=== PATIENT | female | born 1935 | race Caucasian/White ===

== ENCOUNTER 2017-11-27 09:35 | Outpatient (CLI) | payer MEDICARE, BC ==
--- NOTE | 2017-11-27 11:24 | ULT ---
ABDOMINAL ULTRASOUND: Date: 11/27/17 COMPARISON: None. HISTORY: Generalized intra-abdominal and pelvic swelling mass and lump. TECHNIQUE: Multiplanar Vargas scale sonographic imaging of the abdomen provided. FINDINGS: Imaged pancreas is unremarkable. The body and tail are partially obscured by bowel gas. The inferior vena cava and intrahepatic veins are dilated, which may be on the basis of passive conge stion. The imaged abdominal aorta appears grossly unremarkable. No gallbladder wall thickening or per icholecystic fluid. No gallstones are noted. Car Whacker reports a negative Brown's sign. The common bile duct measures 6.0 mm, within normal limits. The right kidney measures 9.3 cm in craniocaudal dimension and demonstrates no stone, hydronephrosis, or mass. The left kidney measures 9.9 cm in craniocaudal dimension and contains a 1.8 x 1.5 x 1.5 cm cyst. Spleen measures 7.6 cm and contains echogenic foci suggesting numerous granulomata. IMPRESSION: 1. Dilated IVC and hepatic veins may signify venous congestion, possibly cardiogenic in nature. 2. No evidence for cholelithiasis, cholecystitis, or biliary dilatation. POS: [facility]
== END 2017-11-27 09:36 | disposition home or self-care (01) ==
LOC: ULT 09:35
PROVIDERS: ATTEND Internal Medicine
DX: R19.07 Generalized intra-abdominal and pelvic swelling, mass and lump (principal); I86.8 Varicose veins of other specified sites
CPT/HCPCS: 76700

== ENCOUNTER 2018-04-11 07:52 | Outpatient (CLI) | payer MEDICARE, BC ==
--- NOTE | 2018-04-11 11:09 | CT ---
ABDOMEN CT WITH CONTRAST PELVIC CT WITH CONTRAST: HISTORY: Evaluate for abdominal mass. COMPARISON: None. FINDINGS: ABDOMEN CT: Enlarged cardiac silhouette. Lung bases are clear. The descending thoracic aorta and abdominal aort a have a normal caliber. No periaortic fat stranding. Symmetric attenuation of the psoas muscles. Portal vein is patent. Gallbladder is unremarkable. There is nodularity of the liver with a heterogeneous appearance. There is a questionable area of no dularity in the right hepatic lobe (Image 28, Series 2). Given this patient's history of cancer, thre e-phase liver MRI is recommended. The hepatic vein and IVC are markedly enlarged suggesting venous co ngestion. There are calcified granulomas in the spleen. The pancreas and adrenal glands are unremar kable. No gastrohepatic, retrocrural, or periportal lymphadenopathy. There are calcifications in the peripancreatic region which are nonspecific. Symmetric enhancement of the kidneys. Bilaterally, no obstructive uropathy. A 1.5 cm exophytic lesi on emanating from the left kidney likely representing a slightly complex cyst. Gastric mucosa, duodenum, and multiple normal-caliber small bowel loops. Ileocecal junction is jon l. Appendix is not appreciated. There are diverticula in the left hemicolon. No diverticulitis. The visualized inferior vena cava and common iliac arteries are markedly distended. There are asymme trically prominent left internal iliac/left pelvic veins. PELVIC CT: Surgical absence of the uterus. No pelvic mass, lymphadenopathy, or free air. Unremarkable urinary bladder. IMPRESSION: 1. Marked dilatation of the inferior vena cava, hepatic vein, and the overall venous system suggestin g venous congestion likely from right heart failure. 2. Diverticulosis, without evidence of diverticulitis. 3. Indeterminate, likely complex left renal cyst. 4. Three-phase liver MRI is recommended. POS: [facility]
[2018-04-11] MEDS ORDERED: Iopamidol 370 76% 50 ML VIAL FS ONE (12:27)
[2018-04-11] MEDS ORDERED: Iopamidol 370 76% 100 ML VIAL ONE (12:27)
== END 2018-04-11 07:53 | disposition home or self-care (01) ==
LOC: CT 07:52
PROVIDERS: ATTEND Internal Medicine
DX: R19.00 Intra-abdominal and pelvic swelling, mass and lump, unspecified site (principal); K57.30 Diverticulosis of large intestine without perforation or abscess without bleeding; I86.8 Varicose veins of other specified sites
CPT/HCPCS: 74177; 82565

== ENCOUNTER 2022-02-21 14:41 | Outpatient (CLI) | payer MEDICARE, BC, OTHER | END 2022-02-21 14:42 | disposition home or self-care (01) | LOC: BICRAD 14:41 | PROVIDERS: ATTEND Nurse Practitioner Family | DX: Z48.812 Encounter for surgical aftercare following surgery on the circulatory system (principal); J98.4 Other disorders of lung; R53.83 Other fatigue | CPT/HCPCS: 36415; 71046; 82306; 84443; 85025 ==

== ENCOUNTER 2022-03-29 16:05 | Inpatient (IN) | payer MEDICARE, BC, OTHER ==
[2022-03-29 16:49] LABS: Hemoglobin 9.5 g/dL (12.0-16.0); Mean Corpuscular Hemoglobin 31.7 pg (27.0-31.0); Mean Platelet Volume 10.9 fL (7.4-10.4); Platelet Count 223 thou/uL (130-400); RBC Distribution Width 16.4 % (11.5-14.5); Red Blood Cell (RBC) Count 2.99 mill/uL (4.20-5.40)
[2022-03-29] MEDS ORDERED: Furosemide 40 MG/4 ML VIAL ONE (16:54)
[2022-03-29 16:59] LABS: Digoxin 0.57 ng/mL (0.8-2.0)
[2022-03-29 17:01] LABS: ALT (SGPT) 21 U/L (8-55); AST (SGOT) 106 U/L (5-34); Albumin 3.9 g/dL (3.4-4.8); Alkaline Phosphatase 133 U/L (40-110); Anion Gap 13 mmol/L (10-20); BUN (Urea Nitrogen) 27 mg/dL (9.8-20.1); Bilirubin, Total 3.9 mg/dL (0.2-1.2); CK (CPK) 178 U/L (29-168); Calc. Creatinine Clearance 0 mL/min (70-130); Calcium 10.2 mg/dL (7.8-10.44); Carbon Dioxide 24 mmol/L (23-31); Chloride 99 mmol/L (98-107); Estimated GFR 42; Globulin 3.3 g/dL (2.4-3.5); Glucose 107 mg/dL (83-110); Protein, Total 7.2 g/dL (5.8-8.1); Sodium 132 mmol/L (136-145)
[2022-03-29 17:08] LABS: Anisocytosis SLIGHT = 6-15 cells (100X) (0-5/hpf); Burr Cells SLIGHT = 2-5 cells (100X) (0-1/hpf); Eosinophils 3 % (0-10); Lymphocytes 13 % (21-51); MDiff Complete? YES; Macrocytosis SLIGHT = 6-15 cells (100X) (0-5/hpf); Monocytes 8 % (0-10); Neutrophil 74 % (42-75); Ovalocytes SLIGHT = 2-5 cells (100X) (0-1/hpf); Platelet Morphology Comment Appears Adequate; Polychromasia MODERATE = 3-4 cells (100X) (0-2/hpf); Schistocytes SLIGHT = 2-5 cells (100X) (0-1/hpf)
[2022-03-29 17:32] LABS: CKMB 2.1 ng/mL (0-6.6)
[2022-03-29] MEDS ORDERED: Digoxin 0.5 MG/2 ML AMP ONE (17:38)
[2022-03-29 18:48] LABS: INR-International Normal Ratio 2.5; PTT 47.3 sec (22.9-36.1); Prothrombin Time 27.1 sec (12.0-14.7)
[2022-03-29] MEDS ORDERED: Acetaminophen 325 MG TAB PO PRN (19:45)
[2022-03-29] MEDS ORDERED: Senokot S 8.6-50 MG TAB PO PRN (19:45)
[2022-03-29] MEDS ORDERED: Ondansetron ODT 4 MG TAB PO PRN (19:45)
[2022-03-29] MEDS ORDERED: Bisacodyl 5 MG TAB PO PRN (19:45)
[2022-03-29] MEDS: ALPRAZolam 0.5 MG TAB PO SCH (22:17)
[2022-03-29] MEDS: Betamethasone 0.1% Cream 15 GM TUBE TOP SCH (22:23)
[2022-03-29] MEDS: cefTRIAXone\\ROCEPHIN 1 GM in Sodium Chloride 0.9% 100 ML IVPB SCH (22:36)
[2022-03-29 22:56] VITALS: BMI 23.8
[2022-03-29] MEDS ORDERED: Furosemide 100 MG/10 ML VIAL SLOW IVP SCH (23:00)
[2022-03-29 23:18] LABS: CKMB 2.6 ng/mL (0-6.6)
[2022-03-30 05:17] LABS: INR-International Normal Ratio 2.4; Prothrombin Time 26.4 sec (12.0-14.7)
[2022-03-30 05:30] LABS: Anion Gap 16 mmol/L (10-20); BUN (Urea Nitrogen) 26 mg/dL (9.8-20.1); Calc. Creatinine Clearance 35 mL/min (70-130); Calcium 9.7 mg/dL (7.8-10.44); Carbon Dioxide 24 mmol/L (23-31); Chloride 102 mmol/L (98-107); Estimated GFR 49; Glucose 101 mg/dL (83-110); Potassium 3.4 mmol/L (3.5-5.1); Sodium 139 mmol/L (136-145)
[2022-03-30 06:08] LABS: Anisocytosis SLIGHT = 6-15 cells (100X) (0-5/hpf); Hemoglobin 9.6 g/dL (12.0-16.0); Hypochromia SLIGHT = 6-15 cells (100X) (0-5/hpf); Lymphocytes 12 % (21-51); MDiff Complete? YES; Macrocytosis SLIGHT = 6-15 cells (100X) (0-5/hpf); Mean Corpuscular HGB CONC 31.3 g/dL (32.0-36.0); Monocytes 10 % (0-10); Neutrophil 78 % (42-75); Nucleated RBC 1 % (0); Ovalocytes SLIGHT = 2-5 cells (100X) (0-1/hpf); Platelet Count 223 thou/uL (130-400); Platelet Morphology Comment Appears Adequate; Polychromasia SLIGHT = 2-3 cells (100X) (0-2/hpf); RBC Distribution Width 16.1 % (11.5-14.5); Red Blood Cell (RBC) Count 3.01 mill/uL (4.20-5.40); Tear Drops SLIGHT = 2-5 cells (100X) (0-1/hpf); White Blood Cell (WBC) Count 6.9 thou/uL (4.8-10.8)
[2022-03-30] MEDS: Furosemide 100 MG/10 ML VIAL SLOW IVP SCH ×2 (06:09→14:32)
[2022-03-30] MEDS: Spironolactone 25 MG TAB PO SCH (10:25)
[2022-03-30] MEDS: Digoxin 0.125 MG TAB PO SCH (10:25)
[2022-03-30] MEDS: Betamethasone 0.1% Cream 15 GM TUBE TOP SCH ×2 (10:27→22:14)
[2022-03-30] MEDS: Warfarin Sodium 2.5 MG TAB PO SCH (12:04)
[2022-03-30] MEDS ORDERED: Potassium Chloride 20 MEQ TAB PO SCH (15:15)
[2022-03-30] MEDS: Potassium Chloride 20 MEQ TAB PO SCH (16:20)
[2022-03-30] MEDS: ALPRAZolam 0.5 MG TAB PO SCH (22:14)
[2022-03-30] MEDS: cefTRIAXone\\ROCEPHIN 1 GM in Sodium Chloride 0.9% 100 ML IVPB SCH (22:14)
[2022-03-31 04:54] LABS: INR-International Normal Ratio 2.1; Prothrombin Time 23.5 sec (12.0-14.7)
[2022-03-31 05:02] LABS: ALT (SGPT) 22 U/L (8-55); AST (SGOT) 115 U/L (5-34); Albumin 3.6 g/dL (3.4-4.8); Alkaline Phosphatase 119 U/L (40-110); Anion Gap 15 mmol/L (10-20); BUN (Urea Nitrogen) 29 mg/dL (9.8-20.1); Bilirubin, Total 3.1 mg/dL (0.2-1.2); Calc. Creatinine Clearance 30 mL/min (70-130); Calcium 9.7 mg/dL (7.8-10.44); Carbon Dioxide 22 mmol/L (23-31); Chloride 100 mmol/L (98-107); Estimated GFR 43; Globulin 3.3 g/dL (2.4-3.5); Glucose 95 mg/dL (83-110); Potassium 4.1 mmol/L (3.5-5.1); Protein, Total 6.9 g/dL (5.8-8.1); Sodium 133 mmol/L (136-145)
[2022-03-31 05:03] LABS: #Eosinphils 0.3 thou/uL (0.0-0.7); #Lymphocytes 1.2 thou/uL (1.20-3.40); #Neutrophils 4.7 thou/uL (1.40-6.50); %Basophils 0.6 % (0.0-1.0); %Eosinophils 3.7 % (0.0-10.0); %Lymphocytes 16.2 % (21.0-51.0); %Monocytes 14.5 % (0.0-10.0); Hemoglobin 9.3 g/dL (12.0-16.0); Mean Corpuscular HGB CONC 32.5 g/dL (32.0-36.0); Mean Corpuscular Hemoglobin 32.6 pg (27.0-31.0); Mean Platelet Volume 7.8 fL (7.4-10.4); Platelet Count 231 thou/uL (130-400); RBC Distribution Width 18.7 % (11.5-14.5); Red Blood Cell (RBC) Count 2.83 mill/uL (4.20-5.40); White Blood Cell (WBC) Count 7.2 thou/uL (4.8-10.8)
[2022-03-31] MEDS: Furosemide 100 MG/10 ML VIAL SLOW IVP SCH ×2 (06:06→12:15)
[2022-03-31] MEDS: Potassium Chloride 20 MEQ TAB PO SCH ×2 (08:25→18:12)
[2022-03-31] MEDS: Spironolactone 25 MG TAB PO SCH (08:25)
[2022-03-31] MEDS: Digoxin 0.125 MG TAB PO SCH (08:25)
[2022-03-31] MEDS: Betamethasone 0.1% Cream 15 GM TUBE TOP SCH ×2 (08:25→20:44)
[2022-03-31] MEDS: ALPRAZolam 0.5 MG TAB PO SCH ×2 (08:25→20:42)
[2022-03-31] MEDS ORDERED: Digoxin 0.125 MG TAB PO SCH (09:00)
[2022-03-31] MEDS: Warfarin Sodium 2.5 MG TAB PO SCH (12:20)
[2022-03-31] MEDS: cefTRIAXone\\ROCEPHIN 1 GM in Sodium Chloride 0.9% 100 ML IVPB SCH (22:51)
[2022-04-01] MEDS: cefTRIAXone\\ROCEPHIN 1 GM in Sodium Chloride 0.9% 100 ML IVPB SCH (01:02)
[2022-04-01] MEDS: Furosemide 100 MG/10 ML VIAL SLOW IVP SCH ×2 (06:47→13:16)
[2022-04-01 09:06] LABS: Hemoglobin 9.6 g/dL (12.0-16.0); Mean Corpuscular HGB CONC 31.6 g/dL (32.0-36.0); Mean Corpuscular Hemoglobin 32.7 pg (27.0-31.0); Mean Platelet Volume 10.6 fL (7.4-10.4); Platelet Count 266 thou/uL (130-400); RBC Distribution Width 16.7 % (11.5-14.5); Red Blood Cell (RBC) Count 2.92 mill/uL (4.20-5.40); White Blood Cell (WBC) Count 8.4 thou/uL (4.8-10.8)
[2022-04-01 09:15] LABS: INR-International Normal Ratio 1.8; Prothrombin Time 21.5 sec (12.0-14.7)
[2022-04-01] MEDS: Digoxin 0.125 MG TAB PO SCH (09:16)
[2022-04-01] MEDS: Spironolactone 25 MG TAB PO SCH (09:17)
[2022-04-01] MEDS: ALPRAZolam 0.5 MG TAB PO SCH (09:17)
[2022-04-01] MEDS: Potassium Chloride 20 MEQ TAB PO SCH (09:17)
[2022-04-01] MEDS: Betamethasone 0.1% Cream 15 GM TUBE TOP SCH (09:18)
[2022-04-01 09:20] LABS: Anion Gap 13 mmol/L (10-20); BUN (Urea Nitrogen) 33 mg/dL (9.8-20.1); Calc. Creatinine Clearance 29 mL/min (70-130); Calcium 10.2 mg/dL (7.8-10.44); Carbon Dioxide 24 mmol/L (23-31); Chloride 98 mmol/L (98-107); Estimated GFR 40; Glucose 144 mg/dL (83-110); Potassium 4.3 mmol/L (3.5-5.1); Sodium 131 mmol/L (136-145)
[2022-04-01 09:25] LABS: Eosinophils 5 % (0-10); Helmet Cells SLIGHT = 2-5 cells (100X) (0-1/hpf); Hypochromia SLIGHT = 6-15 cells (100X) (0-5/hpf); Lymphocytes 11 % (21-51); MDiff Complete? YES; Macrocytosis SLIGHT = 6-15 cells (100X) (0-5/hpf); Monocytes 12 % (0-10); Neutrophil 69 % (42-75); Platelet Morphology Comment Appears Adequate; Polychromasia SLIGHT = 2-3 cells (100X) (0-2/hpf); Reactive Lymphocytes 2 % (0-10); Schistocytes SLIGHT = 2-5 cells (100X) (0-1/hpf); Tear Drops SLIGHT = 2-5 cells (100X) (0-1/hpf)
[2022-04-01 12:06] VITALS: BP 150/70; TEMP 98.3
[2022-04-01] MEDS: Warfarin Sodium 2.5 MG TAB PO SCH (13:13)
== END 2022-04-01 15:03 | disposition home or self-care (01) | DRG 291 ==
LOC: ERS 16:05 → 2NO 18:36 → OBSVTOIN 03-30 15:16
PROVIDERS: ADMIT Hospitalist; ATTEND Hospitalist
PROC: 4B02XSZ Measurement of Cardiac Pacemaker, External Approach (ICD-10-PCS; principal; 2022-03-30)
DX: I13.0 Hypertensive heart and chronic kidney disease with heart failure and stage 1 through stage 4 chronic kidney disease, or unspecified chronic kidney disease (principal); I50.33 Acute on chronic diastolic (congestive) heart failure; L03.115 Cellulitis of right lower limb; L03.116 Cellulitis of left lower limb; N17.9 Acute kidney failure, unspecified; Z66 Do not resuscitate; I25.10 Atherosclerotic heart disease of native coronary artery without angina pectoris; N18.9 Chronic kidney disease, unspecified; I50.811 Acute right heart failure; E78.00 Pure hypercholesterolemia, unspecified; E03.9 Hypothyroidism, unspecified; F41.9 Anxiety disorder, unspecified; F32.A Depression, unspecified; E11.22 Type 2 diabetes mellitus with diabetic chronic kidney disease; R77.8 Other specified abnormalities of plasma proteins; Z28.21 Immunization not carried out because of patient refusal; Z79.01 Long term (current) use of anticoagulants; Z95.2 Presence of prosthetic heart valve; Z95.0 Presence of cardiac pacemaker; Z88.5 Allergy status to narcotic agent; Z88.8 Allergy status to other drugs, medicaments and biological substances; Z88.1 Allergy status to other antibiotic agents; Z91.041 Radiographic dye allergy status; Z86.11 Personal history of tuberculosis; Z87.891 Personal history of nicotine dependence; Z90.710 Acquired absence of both cervix and uterus
CPT/HCPCS: 36415; 71045; 80048; 80053; 80162; 82550; 82553; 83880; 84484; 85025; 85610; 85730; 93005; 93306; 93970; 96374; 96375; 96376; 97139; G0378; J0696; J1160; J1940; J3490